=== PATIENT | male | born 1995 | race Caucasian/White ===

== ENCOUNTER 2017-01-27 03:56 | Inpatient (IN) | payer OTHER ==
[~2017-01-27] VITALS: Ht 188 cm; Wt 130.2 kg
[2017-01-27] MEDS ORDERED: NALOXONE 1 MG/ML, 2ML ONE (04:01)
[2017-01-27] MEDS ORDERED: ONDANSETRON 2MG/ML, 2ML ONE (04:12)
[2017-01-27] MEDS ORDERED: PROPOFOL 100 ML IV PRN (04:24)
[2017-01-27] MEDS ORDERED: ONDANSETRON 2MG/ML, 2ML IVPush ONE (04:30)
[2017-01-27] MEDS ORDERED: SUCCINYLCHOLINE 20 MG/ML, 10ML IVPush ONE (04:30)
[2017-01-27] MEDS ORDERED: NALOXONE 1 MG/ML, 2ML IVPush ONE (04:30)
[2017-01-27] MEDS ORDERED: SODIUM CHLORIDE 0.9% 1,000ML IVBOLUS ONE (04:30)
[2017-01-27] MEDS ORDERED: ETOMIDATE 20 MG/10 ML IVPush ONE (04:30)
[2017-01-27 04:31] LABS: HEMATOCRIT 46.2 % (39.2-51.8); HEMOGLOBIN 15.7 g/dL (13.7-18.0); WHITE BLOOD COUNT 9.1 x10^3/uL (3.4-10)
[2017-01-27 04:42] LABS: BLOOD UREA NITROGEN 12 mg/dL (7-18)
[2017-01-27 04:48] LABS: ASPARTATE AMINO TRANSFERASE 28 U/L (15-37)
[2017-01-27 04:49] LABS: ACETAMINOPHEN < 2 mcg/mL (10-30)
[2017-01-27 04:51] LABS: DAU SCREEN DISCLAIMER
[2017-01-27] MEDS ORDERED: PIPERACILLIN/TAZO/PMX 4.5GM 100 ML IV ONE (05:00)
[2017-01-27] MEDS ORDERED: POTASSIUM CHLORIDE 20 MEQ in SODIUM CHLORIDE 0.9% 250 ML IV ONE (05:00)
[2017-01-27 06:15] LABS: ABG COLLECTION SITE LEFT RADIAL
[2017-01-27 06:16] LABS: COLLATERAL CIRCULATION TESTING NORMAL
[2017-01-27] MEDS ORDERED: D5%-0.45NACL+KCL 20MEQ 1,000 ML IV SCH (07:19)
[2017-01-27] MEDS ORDERED: ACETAMINOPHEN 325 MG TABLET PO PRN (07:30)
[2017-01-27] MEDS ORDERED: LABETALOL 5MG/ML, 20ML IVPush PRN (07:30)
[2017-01-27] MEDS ORDERED: morphine SULFATE 10 MG/ML, 1ML IVPush PRN (07:30)
[2017-01-27] MEDS ORDERED: PIPERACILLIN/TAZO/PMX 3.375GM 50 ML IV SCH (07:30)
[2017-01-27] MEDS ORDERED: BISACODYL 10 MG SUPP PR PRN (07:30)
[2017-01-27] MEDS ORDERED: HEPARIN 5,000 UNITS/ML, 1ML SQ SCH (07:30)
[2017-01-27] MEDS ORDERED: VANCOMYCIN PER PHARMACY MC PRN (07:30)
[2017-01-27] MEDS ORDERED: ONDANSETRON 2MG/ML, 2ML IVPush PRN (07:30)
[2017-01-27 07:37] LABS: ABG COLLECTION SITE RIGHT RADIAL; COLLATERAL CIRCULATION TESTING NORMAL; FIO2 100 %
[2017-01-27] MEDS ORDERED: ETOMIDATE 20 MG/10 ML ONE (08:00)
[2017-01-27] MEDS ORDERED: VECURONIUM 10 MG ONE (08:00)
[2017-01-27] MEDS ORDERED: SUCCINYLCHOLINE 20 MG/ML, 10ML ONE (08:00)
[2017-01-27] MEDS ORDERED: PROPOFOL 10 MG/ML, 100ML IV ONE (08:00)
[2017-01-27] MEDS ORDERED: PROPOFOL 100 ML IV ONE (08:21)
[2017-01-27 09:23] VITALS: BP 133/61
[2017-01-27] MEDS ORDERED: PHARMACOKINETIC CONSULTATION MC ONE (09:30)
[2017-01-27] MEDS ORDERED: PHARMACOKINETIC MONITORING MC PRN (09:30)
[2017-01-27 09:59] VITALS: BP 133/61
[2017-01-27] MEDS ORDERED: PIPERACILLIN/TAZO 3.375 GM in SODIUM CHLORIDE 0.9% 50 ML IVPB SCH (10:00)
[2017-01-27] MEDS ORDERED: VANCOMYCIN 2,000 MG in SODIUM CHLORIDE 0.9% 500 ML IV SCH (11:00)
[2017-01-27] MEDS ORDERED: AMPICILLIN/SULBACTAM 3 GM in SODIUM CHLORIDE 0.9% 100 ML IV SCH (13:00)
== END 2017-01-27 13:25 | disposition left against medical advice (07) | DRG 208 ==
LOC: ED 06:01 → EDIP 06:33 → ICU 08:41
PROVIDERS: ADMIT Surgery; ATTEND Surgery
PROC: 5A1935Z Respiratory Ventilation, Less than 24 Consecutive Hours (ICD-10-PCS; principal; 2017-01-27)
PROC: 0BH17EZ Insertion of Endotracheal Airway into Trachea, Via Natural or Artificial Opening (ICD-10-PCS; 2017-01-27)
DX: J96.01 Acute respiratory failure with hypoxia (principal); J69.0 Pneumonitis due to inhalation of food and vomit; G93.40 Encephalopathy, unspecified; N17.9 Acute kidney failure, unspecified; E87.2 Acidosis; W18.39XA Other fall on same level, initial encounter; E87.6 Hypokalemia; Z53.21 Procedure and treatment not carried out due to patient leaving prior to being seen by health care provider; F10.129 Alcohol abuse with intoxication, unspecified; Y90.8 Blood alcohol level of 240 mg/100 ml or more; F19.10 Other psychoactive substance abuse, uncomplicated; S40.212A Abrasion of left shoulder, initial encounter; S40.211A Abrasion of right shoulder, initial encounter; S00.81XA Abrasion of other part of head, initial encounter; Y93.89 Activity, other specified; Y92.89 Other specified places as the place of occurrence of the external cause
CPT/HCPCS: 10060; 31500; 36415; 36600; 70450; 71010; 80053; 80307; 80329; 82803; 83605; 84145; 85025; 87040; 87070; 87081; 87205; 93005; 94002; 96361; 96365; 96372; J1644; J2405; J2543; J2704; J3480; G0479; G0480; J0330; J2310; J7030; J7050